=== PATIENT | female | born 1945 | race Two or more races ===

== ENCOUNTER 2021-06-16 09:29 | Outpatient (REF) | payer MEDICARE, MEDICAID, SELFPAY ==
--- NOTE | ~2021-06-16 | CT_ITS ---
EXAMINATION: CT HEAD WITHOUT CONTRAST CLINICAL INFORMATION: Migraines. COMPARISON: None TECHNIQUE: Contiguous axial imaging was performed from the skull base to vertex without intravenous administration of contrast. This CT examination was performed using dose optimization techniques as appropriate, variously including the following: *Automated exposure control *Adjustment of mA and/or kV according to patient size (this includes techniques or standardized protocols for targeted exams where dose is matched to indication/reason for exam; i.e. extremities or head) *Use of iterative reconstruction technique DLP: 570 mGy-cm FINDINGS: There is no evidence of acute intracranial hemorrhage or territorial infarction. No abnormal mass effect or midline shift is seen. Carrasco to white matter differentiation is well preserved. No extra-axial fluid collections are identified. The ventricles are normal in size. There is no abnormal attenuation within the brain parenchyma. The osseous structures and soft tissues are normal. The mastoid air cells and visualized portions of the paranasal sinuses are well aerated. CT/CT head/brain wo con IMPRESSION: No acute intracranial process seen.
== END 2021-06-16 09:30 | disposition home or self-care (01) ==
LOC: HO.CT 09:29
PROVIDERS: Visit Provider Physician Assistant Medical
DX: G43.109 Migraine with aura, not intractable, without status migrainosus (principal)
CPT/HCPCS: 70450

== ENCOUNTER 2025-05-26 11:00 | Outpatient (AMB) | payer MEDICARE, MEDICAID, SELFPAY ==
--- NOTE | 2025-05-26 11:07 | A.OFFVIS_ITS ---
Vital Signs 05/26/25 11:13 Height 5 ft Weight 115 lb BMI 22.5 BP 124/70 Blood Pressure Location Lt brachial Position Sitting Respiration 16 Pulse 76 Pulse Source Pulse Oximeter Pulse Oximetry (%) 99 Oxygen Delivery Method Room Air Intake Visit Reasons: Migraine Chute Builder Required: No Accompanied by: Daughter Allergies No Known Allergies Allergy (Verified 05/26/25 11:14) HPI Comments Details: Leanna is a 79-year-old female patient with a past medical history of hypertension and hyperlipidemia here today for headache evaluation. According to referral notes, she went to the emergency room on 03/26/2025 for headache which was persistent for at least 5 days with feelings of dizziness and chest pain. Her workup was relatively unrevealing and included a chest x-ray, EKG, CT head and brain, CTA, and MRI of the brain as well as an echocardiogram. She tells me today that she has not headaches since approximately 1996. Most of her headaches have been right-sided though sometimes holocephalic sometimes accompanied by light sensitivity and rarely some nausea. Her headaches are primarily to the frontal areas and parietal areas and she often has tenderness to the occipital areas of her head shows well as her neck and trapezius muscles. She also notes that her pain often radiates down into her neck muscles. She has difficulty with range of motion due to feelings of tightness. Her headaches have been daily and constant for many years but fluctuate in intensity. Since her hospitalization, she has had no further chest pain or dizziness. Her headache has also improved some. She was not able to identify a trigger for her recent hospitalization and in general, is not sure if she has any triggers for her headaches. She denies any autonomic symptoms such as tearing, redness, drooping of her eye, congestion, or rhinorrhea. She denies any vision changes with her headaches but notes that sometimes her eyes are very itchy upon wakening in the morning that is not associated with her headaches. Headache characteristics: Time of onset: 1996 Location: R>L frontoparietal Radiation:To neck R>L Positional component:No Character: Pulsating Severity:Fluctuating but can reach 10/10 Duration: Constant Frequency: Daily Acute aggravating factors:Unknown Acute relieving factors:Unknown Associated symptoms:Light sensitivity and rarely nausea Aura:No Headache triggers:Unknown Other related background information: Sleep: She does have intermittent insomnia. 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- likely not cause for symptoms but follow- up with vascular recommended MRI brain-no acute/subacute infarct or mass [facility] Medical History (Updated 05/26/25 @ 12:26 by Philomena Alarcon CNP) Osteoporosis GERD (gastroesophageal reflux disease) Varicose ulcer of lower extremity Seasonal allergic rhinitis Pure hypercholesterolemia Essential hypertension Migraine Surgical History (Updated 05/21/25 @ 08:45 by Monica Benítez [facility]) History of cholecystectomy H/O breast surgery Physical Exam Vital Signs: Last Vital Signs Pulse 76 05/26/25 11:13 Resp 16 05/26/25 11:13 BP 124/70 05/26/25 11:13 Pulse Ox 99 05/26/25 11:13 Oxygen Delivery Method Room Air 05/26/25 11:13 BMI result Body Mass Index 22.5 Assessment & Plan Assessment & Plan (1) Chronic tension type headache: Code(s): G44.229 - Chronic tension-type headache, not intractable Category: Medical (2) Migraine without aura and without status migrainosus, not intractable: Code(s): G43.009 - Migraine without aura, not intractable, without status migrainosus Category: Medical Plan Leanna is a 79-year-old female patient with a past medical history of hypertension and hyperlipidemia here today for headache evaluation. Headaches are most consistent with tension-type headache most likely relapsing migraine type headaches. Her exam today was reassuring though she did have some bilateral (R>L) occipital notch tenderness and diffuse tenderness over her trapezius muscles on both sides. She has failed several different migraine first-line agents. She has never done physical therapy or muscle relaxers for her headaches. We discussed a trial of low-dose tizanidine nightly in conjunction with heat application and physical therapy. I will see her 2 months. -tizanidine 2 mg at bedtime -heat application to the trapezius muscles -trial of physical therapy for myofascial release -follow up in 2 months or sooner if needed Coding Level of Care Code New Pt Level 4 (22617) Diagnoses Chronic tension type headache G44.229 Migraine without aura and without status migrainosus, not intractable G43.009
[2025-05-26 11:13] VITALS: BP 124/70; PULSE 76; RESP 16; O2SAT 99; BMI 22.5
--- OUTSIDE RECORDS SUMMARY | 2025-05-26 13:48 | XMS_ITS | Encounter Summary ---
Author Organization [facility] Address [address] [place] [address] [place] [phone] Phone Care Team Providers Care Vocational Director Name Role Phone Amber Mota Primary Care Provider Pedro Le NP Primary Care Provide r Encounter Details Date Type Department Care Team (Late st Contact Info) Description 12/03/2020 Transcribe Orders [address] [place] [address] Pedro Le, SLIME PLANT OPERATOR HELPER [address] [place] [address] Other chest pain (Primary Dx) Social History Tobacco Use Types Packs/Day Years Used Date Smoking Tobacco: Never Assessed Comments Unknown Sex and Gender Information Value Date Recorded Sex Assigned at Female 09/18/2019 2:12 PM EST Legal Sex Female 10:08 PM EDT Gender Identity Female 09/18/2019 2:12 PM EST Sexual Orientation Straight 09/18/2019 2: 12 PM EST documented as of this encounter Plan of Treatment Upcoming Encounters Date Type Department Care Team (Late st Contact Info) Description 12/19/2025 11:00 AM EDT Office Visit [facility] [address] [address] James Dejesus, SAMMIE [address] [place] [address] documented as of this encounter Results * (ABNORMAL) Comprehensive metabolic panel (12/03/2020 11:09 AM EDT) SODIUM 140 133 - 146 mmol/L [facility] POTASSIUM 3.9 3.3 - 5.1 mmol/L [facility] CHLORIDE 104 96 - 108 mmol/L [facility] CO2 24 21 - 35 mmol/L [facility] BUN 12 6 - 19 mg/dL [facility] CREATININE 0.60 0.5 - 1.5 mg/dL [facility] GLUCOSE 100(H) 70 - 99 mg/dL [facility] ALBUMIN 4.5 3.9 - 4.8 g/dL [facility] TOTAL PROTEIN 7.4 6.5 - 8.0 g/dL [facility] CALCIUM 9.4 8.4 - 10.3 mg/dL [facility] ALKALINE PHOSPHATASE 90 39 - 117 U/L [facility] TOTAL BILIRUBIN 0.8 0.0 - 1.2 mg/dL [facility] AST 38(H) 0 - 37 U/L [facility] ALT 20 0 - 40 U/L [facility] GLOBULIN 2.9 1 - 4.8 g/dL [facility] EGFR 89 >59 mL/min/1.7 3m2 [facility] Comment:Estimated glomerular filtration rate calculated using the CKD-EPI equation. ANION GAP 16 10 - 20 mmol/L [facility] Blood 12/03/2020 11:0 9 AM EDT 12/03/2020 11:13 AM EDT us Pedro Le SLIME PLANT OPERATOR HELPER LAB BLOOD BKR ORDERAB LES Final Result [facility] [address] [place] [address] * CBC (12/03/2020 11:09 AM EDT) WBC 5.56 4.00 - 11.00 K/uL [facility] RBC 4.00 3.72 - 5.30 M/uL [facility] HGB 12.2 11.4 - 15.9 g/dL [facility] HCT 36.3 34.2 - 46.8 % [facility] PLT 261 140 - 430 K/uL [facility] MCV 90.8 78.0 - 97.0 fL [facility] MCH 30.5 25.0 - 33.0 pg [facility] MCHC 33.6 32.0 - 36.0 g/dL [facility] RDW 13.1 11.0 - 16.0 % [facility] MPV 10.7 8.4 - 12.8 fl [facility] NRBC 0.00 0 /100 WBCs [facility] ABSOLUTE NRBC 0.00 0 K/uL [facility] Blood 12/03/2020 11:0 9 AM EDT 12/03/2020 11:13 AM EDT us Pedro Le SLIME PLANT OPERATOR HELPER LAB BLOOD BKR ORDERAB LES Final Result Performing Organization Address City/State/[facility] Co de Phone Number [address] [address] * (ABNORMAL) Lipid panel (12/03/2020 11:09 AM EDT) HDL 66 mg/dL [facility] Comment: Interpretation <40 mg/dL: Low HDL cholesterol (major risk factor for CHD) Greater than or equal to 60 mg/dL: High HDL cholesterol ( negative risk factor for CHD) HDL - cholesterol is affected by a number of factors, e.g. smoking, excerise, hormones, sex and age. CHOLESTEROL 264(H) 0 - 240 mg/dL [facility] TRIGLYCERIDES 105 30 - 160 mg/dL [facility] LDL 177(H) 50 - 129 mg/dL [facility] Comment: LDL levels in terms of risk for coronary heart disease: <100 mg/dL: Optimal 100-129 mg/dL: Near or above optimal 130-159 mg/dL: Borderline high 160-189 mg/dL: High >190 mg/dL: Very High CARDIAC RISK RATIO 4.0 3.3 - 4.4 C [facility] Blood 12/03/2020 11:0 9 AM EDT 12/03/2020 11:13 AM EDT Pedro Le SLIME PLANT OPERATOR HELPER LAB BLOOD BKR ORDERAB LES Final Result [address] [address] documented in this encounter Visit Diagnoses Diagnosis Other chest pain- Primary documented in this encounter Care Teams Vocational Director Relationship Specialty Start Date End Date Amber Mota PA [address] [address] PCP - General Unknown Provider Specialty 06/25/1809/22/22 Pedro Le NP [address] [address] PCP - General Nurse Practitioner 09/23/22 documented as of this encounter Additional Source Comments The information contained in this document represents components of the legal health record. It is not the complete legal health record.[facility]
--- OUTSIDE RECORDS SUMMARY | 2025-05-26 13:48 | XMS_ITS | Encounter Summary ---
Author Organization [facility] Address [address] [facility] [address] [address] [place] [address] Phone Care Team Providers Care Executive Candidate Developer Name Role Phone Amber Mota Primary Care Provider [phone] Pedro Le NP Primary Care Provide r Encounter Details Date Type Department Care Team (Late st Contact Info) Description 11/04/2021 Ancillary Orders Virtual Department [address] [place] [address] Pedro Le, ANATOLIY [address] [place] [address] Osteopenia, unspecified location; Other specified disorders of bone density and structure, unspecified site Social History Tobacco Use Types Packs/Day Years [...] 12/19/2025 11:00 AM EDT Office Visit [facility] [address] [address] James Dejesus, WATER LEAK REPAIRER [address] [place] [address] [email or web address] documented as of this encounter Results * BD DXA AXIAL (SPINE) WITH HIP (04/07/2022 9:41 AM EDT) Anatomical Region Laterality Modality Bone Density Bone Density 04/07/2022 9:46 AM EDT Impressions 04/07/2022 9:47 AM EDT Osteoporosis Reference Information: The T-score is the number of standard deviations above or below the standard which is normal for young adults at their peak bone mineral density. The World Health Organization (WHO) interprets the T-scores as follows: Above -1 Normal bone density Between -1 and -2.5Osteopenia Equal to / or below -2.5Osteoporosis As a practical clinical guideline, osteopenia may be graded as follows: Mild -1 through -1.5 Moderate -1.6 through -2.0 Severe-2.1 through -2.4 References: 1. NIH Osteoporosis and Related Bone Diseases http://www.osteo.org 2. International Society for Clinical Densitometry http://www.iscd.org 3. National Osteoporosis Foundation http://www.nof.org Narrative 04/07/2022 9:47 AM EDT STUDY: DUAL ENERGY X-RAY ABSORPTIOMETRY / DXA REASON FOR EXAM: Female, 76 years old. TECHNIQUE: Bone Mineral Density (BMD) measurements of the lumbar spine and bilateral hips were obtained. COMPARISON: None. FINDINGS: L1-L4 T score: -2.4. This corresponds to osteopenia Right femoral neck T score: -1.9. This corresponds to osteopenia Right total hip T score: -1.7. This corresponds to osteopenia Left femoral neck T score: -2.6. This corresponds to osteoporosis Left total hip T score: -1.9. This corresponds to osteopenia Procedure Note Lai Jarquin MD - 04/07/2022 STUDY: DUAL ENERGY X-RAY ABSORPTIOMETRY / DXA REASON FOR EXAM: Female, 76 years old. TECHNIQUE: Bone Mineral Density (BMD) measurements of the lumbar spineand bilateral hips were obtained. COMPARISON: None. FINDINGS: L1-L4 T score: -2.4. This corresponds to osteopenia Right femoral neck T score: -1.9. This corresponds to osteopenia Right total hip T score: -1.7. This corresponds to osteopenia Left femoral neck T score: -2.6. This corresponds to osteoporosis Left total hip T score: -1.9. This corresponds to osteopenia IMPRESSION: Osteoporosis Reference Information: The T-score is the number of standard deviations above or below thestandard which is normal for young adults at their peak bone mineraldensity. The World Health Organization (WHO) interprets the T-scores asfollows: Above -1 Normal bone density Between -1 and -2.5Osteopenia Equal to / or below -2.5Osteoporosis As a practical clinical guideline, osteopenia may be graded as follows: Mild -1 through -1.5 Moderate -1.6 through -2.0 Severe-2.1 through -2.4 References: 1. NIH Osteoporosis and Related Bone Diseases http://www.osteo.org 2. International Society for Clinical Densitometry http://www.iscd.org 3. National Osteoporosis Foundation http://www.nof.org us Pedro Le HEAT TREAT OPERATOR IMG BD BONE DENSITY D EXA Final Result documented in this encounter Visit Diagnoses Diagnosis Osteopenia, unspecified location Other specified disorders of bone density and structure, unspecified site Osteopenia, unspecified location Other specified disorders of bone density and structure, unspecified site documented in this encounter Care Teams Executive Candidate Developer Relationship Specialty Start Date End Date Amber Mota PA [address] [address] PCP - General Unknown Provider Specialty 06/25/1809/22/22 Pedro Le NP [address] [address] PCP - General Nurse Practitioner 09/23/22 documented as of this encounter Additional Source Comments The information contained in this document represents components of the legal health record. It is not the complete legal health record.[facility]
--- OUTSIDE RECORDS SUMMARY | 2025-05-26 13:48 | XMS_ITS | Encounter Summary ---
Author Organization [employer] Address [address] [facility] [address] [place] [address] Care Team Providers Care Coach Driver Name Role Phone Pedro Le BUSINESS OFFICE COORDINATOR Primary Care Provider [phone] Reason for Visit * Reason Comments Med Refill Encounter Details Date Type Department Care Team (Late st Contact Info) Description 05/09/2025 Refill [facility] [address] [place] [address] Pedro Le NP 70 [place] [address] Essential hypertension Social History Tobacco Use Types Packs/Day Years Used Date Smoking Tobacco: Never Smokeless Tobacco: Never Alcohol Use Standard Drinks/Week Comments Never 0 (1 standard drink = 0.6 oz pur e alcohol) Housing Stability Answer Date Recorded What is your housing situation today? I have susanna gonzalez 04/15/[address] you li ve. Do you have problems with any of the following? None of the above 04/15/2024 Food Insecurity Answer Date Recorded Within the past 12 months, y ou worried that your food would run out before you got money to buy more: Never True 04/15/2024 Within the past 12 months,th e food you bought just didn't last and you didn't have enough money to get more: Never True Transportation Answer Date Recorded In the past 12 months, has l ack of transportation kept you from medical appts, meetings, work or from getting things needed for daily living? No 04/15/2024 Utilities Answer Date Recorded In the past 12 months, has t he electric, gas, oil or water company threatened to shut off services in your home? No 04/15/2024 Depression Answer Date Recorded Patient Health Questionnaire-2 Score 0 04/15/2024 Internet Access Answer Date Recorded Internet Access Q1 Yes 04/15/2024 Internet Access Q2 Not on file 04/15/2024 Comments Unknown Sex and Gender Information Value Date Recorded Sex Assigned at Female 05/24/2022 5:37 PM EDT Legal Sex Female 8:39 PM EDT Gender Identity Female 09/21/2022 1:58 PM EST Sexual Orientation Choose not to disclose 2021 5:37 PM EDT documented as of this encounter Miscellaneous Notes * Telephone Encounter - Yeimy Verma [place] - 05/09/2025 9:13 AM EDT Per last TE, AG stated med was changed due to pharmacy. documented in this encounter Plan of Treatment Upcoming Encounters Date Type Department Care Team (Late st Contact Info) Description 06/05/2025 12:30 PM EST Office Visit [facility] [address] [facility] [place] [address] Pedro Le NP 70 [place] [address] documented as of this encounter Visit Diagnoses Diagnosis Essential hypertension Unspecified essential hypertension documented in this encounter Care Teams Coach Driver Relationship Specialty Start Date End Date Pedro Le NP 70 [facility] [place] [address] PCP - General Internal Medicine 09/21/22 documented as of this encounter
--- OUTSIDE RECORDS SUMMARY | 2025-05-26 13:48 | XMS_ITS | Encounter Summary ---
Author Organization [facility] Address [address] [place] [address] [place] [address] Phone Care Team Providers Care Hat Brim And Crown Laminating Operator Name Role Phone Amber Mota Primary Care Provider [phone] Pedro Le NP Primary Care Provide r Encounter Details Date Type Department Care Team (Late st Contact Info) Description 11/04/2021 Transcribe Orders Virtual Department [address] [place] [address] Pedro Le, ANATOLIY [address] [place] [address] Osteopenia, unspecified location Social History Tobacco Use Types Packs/Day Years [...] 12/19/2025 11:00 AM EDT Office Visit [facility] [address] [address] James Dejesus, SAMMIE [address] [place] [address] documented as of this encounter Visit Diagnoses Diagnosis Osteopenia, unspecified location documented in this encounter Care Teams Hat Brim And Crown Laminating Operator Relationship Specialty Start Date End Date Amber Mota PA [address] [address] PCP - General Unknown Provider Specialty 06/25/1809/22/22 Pedro Le NP [address] [address] PCP - General Nurse Practitioner 09/23/22 documented as of this encounter Additional Source Comments The information contained in this document represents components of the legal health record. It is not the complete legal health record.[facility]
--- OUTSIDE RECORDS SUMMARY | 2025-05-26 13:48 | XMS_ITS | Encounter Summary ---
Author Organization [facility] Address [address] [facility] [address] [place] [address] Phone Care Team Providers Care Assisted Living Care Manager Name Role Phone Svetlana Amber CHAPA Primary Care Provider Pedro Le NP Primary Care Provide r Encounter Details Date Type Department Care Team (Late st Contact Info) Description 06/16/2021 Ancillary Orders [facility],Outside Imaging [address] [place] [address] System, Provider Not In, [place] [address] Social History Tobacco Use Types Packs/Day Years [...] Description 12/19/2025 11:00 AM EDT Office Visit [address] [address] James Dejesus, SAMMIE [address] [place] [address] [email or web address] documented as of this encounter Results * CT Head Outside (No Interpretation) (06/16/2021 5:38 PM EST) Narrative SYSTEMGENERATED, DOCUMENTATION - 06/16/2021 5:38 PM EST This study is for PACS storage only and not for interpretation. us Provider Not In System PhD IMG OUTSIDE IMAGING W /OUT INTERPRETATION Final Result documented in this encounter Visit Diagnoses Not on filedocumented in this encounter Care Teams Assisted Living Care Manager Relationship Specialty Start Date End Date Amber Mota PA [address] [address] PCP - General Unknown Provider Specialty 06/25/1809/22/22 Pedro Le NP [address] [address] PCP - General Nurse Practitioner 09/23/22 documented as of this encounter Additional Source Comments The information contained in this document represents components of the legal health record. It is not the complete legal health record.[facility]
--- OUTSIDE RECORDS SUMMARY | 2025-05-26 13:48 | XMS_ITS | Encounter Summary ---
Author Organization [employer] [facility] Address [address] [facility] [address] [place] [address] Care Team Providers Care Sole Cementer Name Role Phone Pedro Le NP Primary Care Provider Reason for Visit * Reason Comments Med Change Request Encounter Details Date Type Department Care Team (Late st Contact Info) Description 10/08/2022 Refill [facility] MED[facility] [address] [place] [address] Pedro Le NP [address] [place] [address] Gastroesophageal reflux disease without esophagitis Social History Tobacco Use Types Packs/Day Years Used Date Smoking Tobacco: Never Smokeless Tobacco: Never Alcohol Use Standard Drinks/Week Comments Never 0 (1 standard drink = 0.6 oz pur e alcohol) Comments Unknown Sex and Gender Information Value Date Recorded Sex Assigned at Female 05/24/2022 5:37 PM EDT Legal Sex Female 8:39 PM EDT Gender Identity Female 09/21/2022 1:58 PM EST Sexual Orientation Choose not to disclose 2021 5:37 PM EDT COVID-19 Exposure Response Date Recorded In the last 10 days, have yo u been in contact with someone who was confirmed or suspected to have Coronavirus/COVID-19? No / Unsure 10/06/2022 7:53 AM EDT documented as of this encounter Miscellaneous Notes * Telephone Encounter - Pedro Le NP - 10/10/2022 10:07 AM EDT Already sent documented in this encounter Plan of Treatment Upcoming Encounters Date Type Department Care Team (Late st Contact Info) Description 06/05/2025 12:30 PM EST Office Visit [facility] MED[facility] [address] [place] [address] Pedro Le NP [address] [place] [address] documented as of this encounter Visit Diagnoses Diagnosis Gastroesophageal reflux disease without esophagitis Esophageal reflux documented in this encounter Care Teams Sole Cementer Relationship Specialty Start Date End Date Pedro Le NP 70 [place] [address] PCP - General Internal Medicine 09/21/22 documented as of this encounter
--- OUTSIDE RECORDS SUMMARY | 2025-05-26 13:48 | XMS_ITS | Encounter Summary ---
Author Organization [facility] Address [address] [place] [address] [place] [address] Phone Care Team Providers Care Transit Man Name Role Phone Amber Mota Primary Care Provider [phone] Pedro Le NP Primary Care Provide r Reason for Referral * MRI/CAT Scan - Closed Specialty Diagnoses / Procedures Referred By Elma t Referred To Contact Radiology Diagnoses Migraine with aura and without status migrainosus, not intractable Procedures CT Head Maria C Verdugo PA Phone: tel: Referral ID Status Reason Start Date Expiration Date Visits Re quested Visits Authorized [id number] Closed 05/18/2021 05/18/2022 1 1 Encounter Details Date Type Department Care Team (Late st Contact Info) Description 05/18/2021 Transcribe Orders Virtual Department [address] [place] [address] Maria C Verdugo PA 9 [place] [address] Migraine with aura and without status migrainosus, not intractable (Primary Dx) Social History Tobacco Use Types [...] 12/19/2025 11:00 AM EDT Office Visit [facility] [address] [place] [address] James Dejesus, SAMMIE [address] [place] [address] [email or web address] documented as of this encounter Results * CT Head (06/22/2021 8:31 AM EST) Anatomical Region Laterality Modality Head CT Diagnostic Narrative 06/22/2021 8:[address] [facility] us Maria C CHAPA IMThong CT HEAD/NECK Final Result documented in this encounter Visit Diagnoses Diagnosis Migraine with aura and without status migrainosus, not intractable- Primary Migraine with aura and without status migrainosus, not intractable documented in this encounter Care Teams Transit Man Relationship Specialty Start Date End Date Amber Mota PA [address] [address] PCP - General Unknown Provider Specialty 06/25/1809/22/22 Pedro Le NP [address] [address] PCP - General Nurse Practitioner 09/23/22 documented as of this encounter Additional Source Comments The information contained in this document represents components of the legal health record. It is not the complete legal health record.[facility]
--- OUTSIDE RECORDS SUMMARY | 2025-05-26 13:48 | XMS_ITS | Encounter Summary ---
Author Organization [facility] Address [address] [place] [address] [place] [address] Phone Care Team Providers Care Biblical Languages Professor Name Role Phone Amber Mota Primary Care Provider [phone] Pedro Le NP Primary Care Provide r Encounter Details Date Type Department Care Team (Late st Contact Info) Description 06/30/2021 Transcribe Orders [address] [place] [address] Maria C Verdugo PA 9 [place] [address] Mild cognitive impairment, so stated (Primary Dx); Vitamin D deficiency, unspecified; Disease of thyroid gland; Anemia due to vitamin B12 deficiency, unspecified B12 deficiency type Social History Tobacco Use Types Packs/Day Years [...] 12/19/2025 11:00 AM EDT Office Visit [facility] [address] [place] [address] James Dejesus, PACKAGE DYEING MACHINE OPERATOR [address] [place] [address] [email or web address] documented as of this encounter Results * Vitamin B12 (06/30/2021 10:18 AM EST) VITAMIN B12 913 232 - 1,245 pg/mL [facility] Blood 06/30/2021 10:1 8 AM EST 06/30/2021 10:24 AM EST us Maria C CHAPA LAB BLOOD BKR ORDERABLES Final Result Performing Organization Address City/[facility]/ZIP Co de Phone Number [address] [address] * Free T4 (06/30/2021 10:18 AM EST) FREE T4 1.2 0.9 - 1.7 ng/dL [facility] Blood 06/30/2021 10:1 8 AM EST 06/30/2021 10:24 AM EST us Maria C CHAPA LAB BLOOD BKR ORDERABLES Final Result Performing Organization Address City/[facility]/ZIP Co de Phone Number [address] [address] * (ABNORMAL) 25-OH vitamin D (06/30/2021 10:18 AM EST) 25 OH VIT D (TOTAL) 27(L) 30 - 60 ng/mL [facility] Blood 06/30/2021 10:1 8 AM EST 06/30/2021 10:24 AM EST us Maria C CHAPA LAB BLOOD BKR ORDERABLES Final Result Performing Organization Address City/[facility]/ZIP Co de Phone Number [address] [address] documented in this encounter Visit Diagnoses Diagnosis Mild cognitive impairment, so stated- Primary Vitamin D deficiency, unspecified Disease of thyroid gland Unspecified disorder of thyroid Anemia due to vitamin B12 deficiency, unspecified B12 deficiency type documented in this encounter Care Teams Biblical Languages Professor Relationship Specialty Start Date End Date Amber Mota PA [address] [address] PCP - General Unknown Provider Specialty 06/25/1809/22/22 Pedro Le NP [address] [address] PCP - General Nurse Practitioner 09/23/22 documented as of this encounter Additional Source Comments The information contained in this document represents components of the legal health record. It is not the complete legal health record.[facility]
--- OUTSIDE RECORDS SUMMARY | 2025-05-26 13:48 | XMS_ITS | Encounter Summary ---
Author Organization [facility] Address [address] [facility] 7t [place] [address] Care Team Providers Care Inspector Optical Instrument Name Role Phone Pedro Le NP Primary Care Provider Encounter Details Date Type Department Care Team (Late st Contact Info) Description 10/06/2022 Abstract [facility] [address] [place] [address] Pedro Le NP 70 [place] [address] Social History Tobacco Use Types Packs/Day Years [...] AM EDT documented as of this encounter Plan of Treatment Upcoming Encounters Date Type Department Care Team (Late st Contact Info) Description 06/05/2025 12:30 PM EST Office Visit [facility] [address] [place] [address] Pedro Le NP 70 [place] [address] documented as of this encounter Visit Diagnoses Not on filedocumented in this encounter Care Teams Inspector Optical Instrument Relationship Specialty Start Date End Date Pedro Le NP [address] [employer] [facility] [place] [address] PCP - General Internal Medicine 09/21/22 documented as of this encounter
--- OUTSIDE RECORDS SUMMARY | 2025-05-26 13:48 | XMS_ITS | Encounter Summary ---
Author Organization [facility] Address [address] [place] [address] [place] [address] Phone Care Team Providers Care General Maintenance Technician Name Role Phone Svetlana Amber CHAPA Primary Care Provider [phone] Pedro Le NP Primary Care Provide r Encounter Details Date Type Department Care Team (Late st Contact Info) Description 09/21/2022 Ancillary Orders [facility], X-Ray - [address] [place] [address] Gretchen Jerez, CLAIMS SORTER [address] [place] [address] Finger pain, left Social History Tobacco Use Types Packs/Day Years [...] Description 12/19/2025 11:00 AM EDT Office Visit [address] [address] James Dejesus, SAMMIE 29 [place] [address] documented as of this encounter Results * XR HAND 3 OR MORE VIEWS (LEFT) (09/23/2022 10:56 AM EST) Anatomical Region Laterality Modality Hand Left Computed Radiogr aphy 09/24/2022 12:0 0 PM EST Impressions 09/24/2022 12:02 PM EST Fourth finger soft tissue swelling without acute osseous abnormality. Narrative 09/24/2022 12:02 PM EST XR HAND 3 OR MORE VIEWS (LEFT) COMPARISON: None FINDINGS: Mild soft tissue swelling of the fourth finger. Bones demineralized. No acute displaced fracture. Mild to moderate joint space narrowing affects the interphalangeal joints, DIP greater than PIP. MCP and wrist joint spaces preserved. No osseous erosions. Procedure Note Talita Marshall MD - 09/24/2022 XR HAND 3 OR MORE VIEWS (LEFT) COMPARISON: None FINDINGS: Mild soft tissue swelling of the fourth finger. Bones demineralized. Noacute displaced fracture. Mild to moderate joint space narrowing affectsthe interphalangeal joints, DIP greater than PIP. MCP and wrist jointspaces preserved. No osseous erosions. IMPRESSION: Fourth finger soft tissue swelling without acute osseous abnormality. [facility] CLAIMS SORTER IMG XR UPPER EXTREMITY Final Result documented in this encounter Visit Diagnoses Diagnosis Finger pain, left Pain in soft tissues of limb Finger pain, left Pain in soft tissues of limb documented in this encounter Care Teams General Maintenance Technician Relationship Specialty Start Date End Date Amber Mota PA [address] [address] PCP - General Unknown Provider Specialty 06/25/1809/22/22 Pedro Le NP [address] [address] PCP - General Nurse Practitioner 09/23/22 documented as of this encounter Additional Source Comments The information contained in this document represents components of the legal health record. It is not the complete legal health record.[facility]
--- OUTSIDE RECORDS SUMMARY | 2025-05-26 13:48 | XMS_ITS | Clinical Summary ---
Author Organization [facility] Address [address] [facility] [address] [place] [address] Phone Care Team Providers Care Registered Dental Assistant Rda Name Role Phone Pedro Le NP Primary Care Provide r Allergies No known active allergies Medications valsartan (DIOVAN) 80 MG tablet TAKE 1 TABLET BY MOUTH EVERY DAY FOR 90 DAYS for 90 Active lisinopril (PRINIVIL,ZEST RIL) 10 MG tablet 1 tablet Active fremanezumab-v frm (AJOVY AUTOINJECTOR) 225 mg/1.5 mL AtIn INJECT 1 SYRINGE SUBCUTANEOUSLY ONCE A MONTH 2 Active famotidine (PEPCID) 20 MG tablet As needed for acid reflux 3 Active ergocalciferol (DRISDOL) 50,000 unit capsule Take 1.25 mg by mouth. 3 Active atorvastatin (LIPITOR) 40 MG tablet Take 40 mg by mouth. 3 Active amLODIPine (NORVASC) 2.5 MG tablet Take 1 tablet by mouth every morning. 3 Active alendronate (FOSAMAX) 70 MG tablet Take 70 mg by mouth. 3 Active melatonin 5 mg Cap Take by mouth. Activ e acetaminophen (TYLENOL) 500 MG tablet Take 1,000 mg by mouth 2 (two) times a day as needed. 4 Active naproxen (NAPROSYN) 500 MG tablet Take 500 mg by mouth 2 (two) times a day as needed. 4 Active propranoloL (INDERAL LA) 80 mg 24 hr capsule Take 80 mg by mouth. 4 Active omeprazole (PRILOSEC) 20 MG tablet Take 20 mg by mouth daily. Active Active Problems Problem Noted Date Diagnosed Date Varicose veins of bilateral lower extremities with other complications 02/20/2023 Assessment & Plan (11/27/2023 9:40 AM EDT): She does not have deep vein valve regurgitation or GSV regurgitation these are just surface veins I reassured her regarding this. Assessment & Plan (05/29/2023 9:01 AM EST): As mentioned very minimal reflux if at all so no interventions need to be performed just conservative management I will reevaluate in 6 months time Assessment & Plan (02/20/2023 10:40 AM EDT): As mentioned she is having a lot of symptoms from bulging veins I will check with a venous reflux study I will see her thereafter in follow-up to tailor more specific therapy. Benign essential hypertension 02/20/2023 Assessment & Plan (11/27/2023 9:39 AM EDT): Well-controlled to the guidelines. Assessment & Plan (05/29/2023 9:01 AM EST): Minimally elevated but recheck was normal Assessment & Plan (02/20/2023 10:40 AM EDT): She is on amlodipine and losartan with good control Pure hypercholesterolemia 02/20/2023 Assessment & Plan (11/27/2023 9:39 AM EDT): Well-controlled at this time given her risk Assessment & Plan (05/29/2023 9:01 AM EST): LDL should be less than 100 given her risk Assessment & Plan (02/20/2023 10:40 AM EDT): She is on a statin agent LDL should be less than 100 triglycerides less than 150 Encounters Date Type Department Care Team Description 05/16/2025 Telephone [facility] [address] [place] [address] Pedro Le NP 03/31/2025 11:24 AM EDT - 03/31/2025 11:59 PM EDT Hospital Encounter [facility] [address] [place] [address] Jocelyn Mccall MD Discharge Disposition: Home or Self Care 03/31/2025 Transcribe Orders [facility] [address] [place] [address] Jocelyn Mccall MD Hypopotassemia (Primary Dx) from Last 3 Months Social History Tobacco Use Types Packs/Day Years Used Date Smoking Tobacco: Never Smokeless Tobacco: Current Tobacco Cessation:Ready to Q uit: Not Asked; Counseling Given: Not Answered Education Answer Date Recorded Are you interested in more education? Not on carla e 11/18/2022 Are you concerned about learning? Not on file 11/18/2022 No 11/18/2022 No 11/18/2022 Digital Access Answer Date Recorded No 12/19/2022 No 12/19/2022 Reliable internet access at home? Not on file 12/19/2022 Device with a working camera? Not on file Comments Unknown Sex and Gender Information Value Date Recorded Sex Assigned at Female 09/18/2019 2:12 PM EST Legal Sex Female 10:08 PM EDT Gender Identity Female 09/18/2019 2:12 PM EST Sexual Orientation Straight 09/18/2019 2: 12 PM EST Last Filed Vital Signs Vital Sign Reading Time Taken Comments Blood Pressure 138/60 11/27/2023 9:24 AM EDT Pulse 67 11/27/2023 9:24 AM EDT Temperature 36.1 C (97 F) 09/18/2019 2:10 PM EST Respiratory Rate 16 09/18/2019 5:24 PM EST Oxygen Saturation 99% 11/27/2023 9:24 AM EDT Inhaled Oxygen Concentration - - Weight 52.6 kg (116 lb) 11/27/2023 9:24 AM EDT Height 165.1 cm (5' 5 ) 11/27/2023 9:24 AM EDT Body Mass Index 19.3 11/27/2023 9:24 AM EDT Plan of Treatment Upcoming Encounters Date Type Department Care Team (Late st Contact Info) Description 12/19/2025 11:00 AM EDT Office Visit [facility] [address] [place] [address] James Dejesus, COMPLETION ENGINEER 29 [place] [address] [email or web address] Health Maintenance Due Date Last Done Comments DEPRESSION SCREENING 1957 HEPATITIS C SCREENING 10/22/1963 ZOSTER VACCINES (1 of 2) 10/22/1995 PNEUMOCOCCAL VACCINES (50+ years) (2 of 2 - PCV) 12/03/2013 12/03/2012 RSV VACCINE (1 - 1-dose 75+ series) 2020 BLOOD PRESSURE 05/29/2024 11/27/2023 INFLUENZA VACCINE (#1) 2025 , 06/05/2019, 08/27/2012 COVID-19 VACCINE (3 - season) 2025 09/18/2020, 08/28/2020 CREATININE LEVEL 03/31/2026 03/31/2025, , 10/14/2022, Additional history exists POTASSIUM LEVEL 03/31/2026 03/31/2025, 12/23, 10/14/2022, Additional history exists LIPID PANEL 01/10/2029 01/11/2024, 09/22, 11/03/2021, Additional history exists Adult Td,Tdap Booster 05/05/2031 05/05/2021, 012 OSTEOPOROSIS SCREENING INITIAL (ONE-TIME) Completed 04/07/2022 SMOKING STATUS SCREENING (Once After 26 Yrs) Completed 11/27/2023 HEPATITIS A VACCINES Aged Out No long er eligible based on patient's age to complete this topic HIB VACCINES Aged Out No longer eligi ble based on patient's age to complete this topic MENINGOCOCCAL VACCINES (ACWY) Aged Out No longer eligible based on patient's age to complete this topic MENINGOCOCCAL VACCINES (B) Aged Out N o longer eligible based on patient's age to complete this topic Medical Devices Not on file Procedures Procedure Name Priority Date/Time Associated Diagnosis Comments BASIC METABOLIC PANEL (BMP) Routine 03/31/2025 11:33 AM EDT Hypopotassemia LIPID PANEL Routine 01/11/2024 10:19 AM EDT Pure hypercholesterolemia Lymphadenopathy Avitaminosis D Senile osteoporosis BD DXA AXIAL (SPINE) WITH HIP Routine 04/07/2022 9:41 AM EDT Osteopenia, unspecified location Other specified disorders of bone density and structure, unspecified site from Last 3 Months or Most Recently Relevant to Health Maintenance Results * Basic metabolic panel (03/31/2025 11:33 AM EDT) SODIUM 138 133 - 146 mmol/L [facility] CHLORIDE 103 96 - 108 mmol/L [facility] POTASSIUM 4.5 3.3 - 5.1 mmol/L [facility] CO2 22 21 - 35 mmol/L [facility] BUN 17 6 - 19 mg/dL [facility] CREATININE 0.70 0.5 - 1.5 mg/dL [facility] GLUCOSE 90 70 - 99 mg/dL [facility] CALCIUM 10.2 8.4 - 10.3 mg/dL [facility] EGFR 88 >59 mL/min/1.7 3m2 [facility] Comment:Estimated glomerular filtration rate calculated using the CKD-EPI refit equation. ANION GAP 18 10 - 20 mmol/L [facility] Blood 03/31/2025 11:3 3 AM EDT 03/31/2025 11:37 AM EDT us Jocelyn Mccall MD LAB BLOOD BKR ORDERABLE S Final Result [facility] [address] [place] [address] * (ABNORMAL) Lipid panel (01/11/2024 10:19 AM EDT) HDL 65 mg/dL [facility] Comment: Interpretation <40 mg/dL: Low HDL cholesterol (major risk factor for CHD) Greater than or equal to 60 mg/dL: High HDL cholesterol ( negative risk factor for CHD) HDL - cholesterol is affected by a number of factors, e.g. smoking, excerise, hormones, sex and age. CHOLESTEROL 244(H) 0 - 240 mg/dL [facility] TRIGLYCERIDES 153 30 - 160 mg/dL [facility] LDL 148(H) 50 - 129 mg/dL [facility] Comment: LDL levels in terms of risk for coronary heart disease: <100 mg/dL: Optimal 100-129 mg/dL: Near or above optimal 130-159 mg/dL: Borderline high 160-189 mg/dL: High >190 mg/dL: Very High CARDIAC RISK RATIO 3.8 3.3 - 4.4 [facility] Blood 01/11/2024 10:1 9 AM EDT 01/11/2024 10:21 AM EDT us Pedro Le JEEP MECHANIC LAB BLOOD BKR ORDERAB LES Final Result [facility] [address] [place], [place] [id number] * BD DXA AXIAL (SPINE) WITH HIP [...] Densitometry http://www.iscd.org 3. National Osteoporosis Foundation http://www.nof.org Pedro Le NP IMThong BD BONE DENSITY D EXA Final Result from Last 3 Months or Most Recently Relevant to Health Maintenance Insurance MEDICARE PART A & B [facility] MEDICARE REPLACEMENT MEDICARE PART A & B [facility] MEDICARE REPLACEMENT MEDICARE PART A & B MEDICARE PART A & B MEDICARE PART A & B MEDICARE REPLACEMENT MEDICARE PART A & B MEDICARE PART A & B MEDICARE REPLACEMENT MEDICARE PART A & B Member Subscriber Plan / Payer (Ef fective 2015-Present) Name:Leanna Anne Member ID:[id number] Relation to Subscriber:Self Name:Leanna Anne Subscriber ID:[id number] Payer ID:[id number] Group ID:Not on file Type:Medicare Address: [employer] [address] [place] [address] [place] [address] MEDICARE REPLACEMENT MEDICARE PART A & B MEDICARE REPLACEMENT Care Teams Registered Dental Assistant Rda Relationship Specialty Start Date End Date Pedro Le NP PCP - General Nurse Practitioner 09/23/22 Additional Source Comments The information contained in this document represents components of the legal health record. It is not the complete legal health record.[facility]
--- OUTSIDE RECORDS SUMMARY | 2025-05-26 13:49 | XMS_ITS | Encounter Summary ---
Author Organization [employer] Address [address] [facility] 7t [place] [address] Care Team Providers Care Secondary Set Up Man Name Role Phone Pedro Le TEASELER Primary Care Provider Encounter Details Date Type Department Care Team (Late st Contact Info) Description 09/23/2022 Abstract [facility] [address] [place] [address] Jaswinder Anderson, JESSIE [address] [place] [address] Social History Tobacco Use Types Packs/Day Years [...] suspected to have Coronavirus/COVID-19? No / Unsure 09/21/2022 11:04 AM EST documented as of this encounter Plan of Treatment Upcoming Encounters Date Type Department Care Team (Late st Contact Info) Description 06/05/2025 12:30 PM EST Office Visit [place] [facility] [address] [place] [address] Pedro Le NP [address] [place] [address] documented as of this encounter Visit Diagnoses Not on filedocumented in this encounter Care Teams Secondary Set Up Man Relationship Specialty Start Date End Date Pedro Le NP [address] [place] [address] PCP - General Internal Medicine 09/21/22 documented as of this encounter
--- OUTSIDE RECORDS SUMMARY | 2025-05-26 13:49 | XMS_ITS | Encounter Summary ---
Author Organization [facility] Address [address] [place] [address] Phone Care Team Providers Care Air Brake Worker Name Role Phone Pedro Le CHASER APPRENTICE Primary Care Provide r Encounter Details Date Type Department Care Team (Late st Contact Info) Description 10/17/2022 Ancillary Orders Non-Invasive Cardiology [address] [place] [address] Gretchen Jerez NP [address] [place] [address] Chest pain, unspecified type; Chest pressure; SOB (shortness of breath); Dizziness; History of hypertension Social History Tobacco Use Types Packs/Day [...] 12/19/2025 11:00 AM EDT Office Visit [facility] [address] [place] [address] James Dejesus, SAMMIE [address] [place] [address] [email or web address] documented as of this encounter Visit Diagnoses Diagnosis Chest pain, unspecified type Chest pressure Other chest pain SOB (shortness of breath) Shortness of breath Dizziness Dizziness and giddiness History of hypertension Personal history of other diseases of circulatory system documented in this encounter Care Teams Air Brake Worker Relationship Specialty Start Date End Date Pedro Le NP PCP - General Nurse Practitioner 09/23/22 documented as of this encounter Additional Source Comments The information contained in this document represents components of the legal health record. It is not the complete legal health record.[facility]
--- OUTSIDE RECORDS SUMMARY | 2025-05-26 13:49 | XMS_ITS | Encounter Summary ---
Author Organization [facility] Address [address] [facility] 7t [place] [address] Care Team Providers Care Hydro Mechanic Name Role Phone Pedro Le [employer]ER Primary Care Provider Reason for Visit * Reason Comments Med Change Request Encounter Details Date Type Department Care Team (Late st Contact Info) Description 10/06/2022 Refill [place] [facility] [address] [place] [address] Pedro Le NP [address] [place] [address] Gastroesophageal reflux disease without esophagitis Social History [...] encounter Miscellaneous Notes * Telephone Encounter - Malathi Baig - 10/06/2022 11:03 AM EDT Duplicated request. Please assign refuse to refill. Thanks documented in this encounter Plan of Treatment Upcoming Encounters Date Type Department Care Team (Late st Contact Info) Description 06/05/2025 12:30 PM EST Office Visit [place] [facility] [address] [facility] [place] [address] Pedro Le NP [address] [place] [address] documented as of this encounter Visit Diagnoses Diagnosis Gastroesophageal reflux disease without esophagitis Esophageal reflux documented in this encounter Care Teams Hydro Mechanic Relationship Specialty Start Date End Date Pedro Le NP [address] [place] [address] PCP - General Internal Medicine 09/21/22 documented as of this encounter
--- OUTSIDE RECORDS SUMMARY | 2025-05-26 13:49 | XMS_ITS | Encounter Summary ---
Author Organization [facility] Address [address] [facility] [address] [place] [address] Care Team Providers Care Client Engagement Specialist Name Role Phone Pedro Le FINANCIAL MARKET DEALER Primary Care Provider Encounter Details Date Type Department Care Team (Late st Contact Info) Description 04/10/2025 Orders Only [facility] [address] [place] [address] Pedro eL NP [address] [place] [address] Social History Tobacco Use Types Packs/Day Years [...] PM EDT documented as of this encounter Plan of Treatment Upcoming Encounters Date Type Department Care Team (Late st Contact Info) Description 06/05/2025 12:30 PM EST Office Visit [facility] [address] [place] [address] Pedro Le NP [address] [place] [address] documented as of this encounter Procedures Procedure Name Priority Date/Time Associated Diagnosis Comments ECG 12-LEAD Routine 03/27/2025 9:48 AM EDT TRANSTHORACIC ECHO (TTE) COMPLETE Routine 03/27/2025 9:43 AM EDT MRI BRAIN WO CONTRAST Routine 03/27/2025 9:41 AM EDT ECG 12-LEAD Routine 03/26/2025 9:[address] HEAD WO CONTRAST Routine 03/26/2025 9 :44 AM EDT CTA HEAD NECK W AND WO CONTRAST Routine 03/26/2025 9:42 AM EDT documented in this encounter Results * ECG 12 lead (03/27/2025 9:48 AM EDT) us Pedro Le NP ECG ORDERABLES Final Result * Transthoracic echo (TTE) complete (03/27/2025 9:43 AM EDT) us Pedro Le NP CV ECHO PROCEDURES Final Res ult * MRI BRAIN WO CONTRAST (03/27/2025 9:41 AM EDT) Anatomical Region Laterality Modality Magnetic Resonan ce us Pedro Le NP IMG MRI PROCEDURES Final Res ult * ECG 12 lead (03/26/2025 9:47 AM EDT) us Pedro Le NP ECG ORDERABLES Final Result * CT HEAD WO CONTRAST (03/26/2025 9:44 AM EDT) Anatomical Region Laterality Modality Computed Tomogra phy us Pedro Le NP IMG CT PROCEDURES Final Resu lt * CTA Head Neck w/ and w/o Contrast (03/26/2025 9:42 AM EDT) Anatomical Region Laterality Modality Head, Neck Computed Tomogra phy us Pedro Le FINANCIAL MARKET DEALER IMG CT PROCEDURES Final Resu lt documented in this encounter Visit Diagnoses Not on filedocumented in this encounter Care Teams Client Engagement Specialist Relationship Specialty Start Date End Date Pedro Le NP [address] [place] [address] PCP - General Internal Medicine 09/21/22 documented as of this encounter
--- OUTSIDE RECORDS SUMMARY | 2025-05-26 13:49 | XMS_ITS | Encounter Summary ---
Author Organization [facility] Address [address] [place] [address] [place] [id number] Phone Care Team Providers Care Puller Out Name Role Phone Pedro Le ELECTRONIC NEWS GATHERING EDITOR Primary Care Provide r Encounter Details Date Type Department Care Team (Late st Contact Info) Description 09/30/2022 Transcribe Orders Virtual Department [address] [place] [address] Gretchen Jerez NP [address] [place] [address] Chest pain, unspecified type (Primary Dx); Chest pressure; SOB (shortness of breath); Dizziness; [...] EDT Office Visit [facility] [address] [place] [address] James Dejesus, SAMMIE [address] [place] [address] documented as of this encounter Visit Diagnoses Diagnosis Chest pain, unspecified type- Primary Chest pressure Other chest pain SOB (shortness of breath) Shortness of breath Dizziness Dizziness and giddiness History of hypertension Personal history of other diseases of circulatory system documented in this encounter Care Teams Puller Out Relationship Specialty Start Date End Date Pedro Le NP PCP - General Nurse Practitioner 09/23/22 documented as of this encounter Additional Source Comments The information contained in this document represents components of the legal health record. It is not the complete legal health record.[facility]
--- OUTSIDE RECORDS SUMMARY | 2025-05-26 13:49 | XMS_ITS | Clinical Summary ---
Author Organization [facility] Address [address] [facility] 7t [place] [address] Care Team Providers Care Diesel Engine Ii Pipe Fitter Name Role Phone Pedro Le NP Primary Care Provider Allergies No known active allergies Medications nitroglycerin (Nitrostat) 0.4 MG SL tablet daily. 021 Active Acetaminophen Extra Strength 500 MG tabletIndications:Migra ine without status migrainosus, not intractable, unspecified migraine type Take 1,000 mg by mouth if needed in the morning and at bedtime (for migraine). 60 tablet 1 024 Active famotidine (Pepcid) 20 MG tabletIndications:Migra ine without status migrainosus, not intractable, unspecified migraine type TAKE 1 TABLET BY MOUTH EVERY MORNING AND THEN 1 TAB AT BEDTIME FOR HEARTBURN, ACID REFLUX, NAUSEA 180 tablet 1 024 Active Additional Information Patient not taking.Reported on 04/16/2025 naproxen (Naprosyn) 500 MG tabletIndications:Migra ine without status migrainosus, not intractable, unspecified migraine type TAKE 1 TABLET BY MOUTH EVERY MORNING AND AT BEDTIME FOR MILD MIGRAINE PAIN NEEDED 60 tablet 1 024 Active Additional Information Patient not taking.Reported on 04/16/2025 valsartan (Diovan) 80 MG tabletIndications:Essen tial hypertension TAKE 1 TABLET (80 MG) BY MOUTH IN THE MORNING 90 tablet 3 024 Active Additional Information Patient not taking.Reported on 04/16/2025 topiramate (Topamax) 25 MG tabletIndications:Migra ine without status migrainosus, not intractable, unspecified migraine type TAKE 1 TABLET (25 MG) BY MOUTH ONCE PER DAY. 90 tablet 1 025 Active Additional Information Patient not taking.Reported on 04/16/2025 amLODIPine (Norvasc) 5 MG tabletIndications:Essen tial hypertension TAKE 1 TABLET (5 MG) BY MOUTH ONCE PER DAY. 90 tablet 1 Active atorvastatin (Lipitor) 40 MG tabletIndications:Pure hypercholesterolemia TAKE 1 TABLET BY MOUTH EVERY DAY IN THE MORNING 90 tablet 1 025 Active Additional Information Patient taking differently: 10 mgOral Every morning, Reported on 04/16/2025 Nirmatrelvir&Ritonavir 300/100 (Paxlovid, 300/100,) 20 x 150 MG & 10 x 100MG tablet therapy packIndications:COVID-1 9 Take 1 Dose by mouth Use as directed. 30 each Active losartan (Cozaar) 100 MG tabletIndications:Essen tial hypertension Take 1 tablet (100 mg) by mouth Once per day. 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 12/08/2022 Gastroesophageal reflux disease without esophagi tis 12/08/2022 Essential hypertension 09/21/2022 Migraine without status migrainosus, not intract able 09/21/2022 Osteoporosis without current pathological fractu re 09/21/2022 Pure hypercholesterolemia 09/21/2022 Seasonal allergic rhinitis 09/21/2022 Encounters Date Type Department Care Team Description 05/09/[address] [address] Pedro Le NP Essential hypertension 04/17/[address] [address] Jen Cody MD Essential hypertension 04/16/2025 3:40 PM EDT Office Visit [address] [address] Jen Cody MD Sore throat (Primary Dx); Essential hypertension; COVID-19 04/10/2025 Orders Only [facility] [address] [place] [address] Pedro Le NP 04/04/2025 Telephone [facility] [address] [place] [address] Pedro Le NP request patient demographic info; neurology follow up; Need records (MRI/MRA) 03/31/2025 10:00 AM EDT Office Visit [facility] [address] [place] [address] Jocelyn Mccall MD Hypokalemia (Primary Dx); Aneurysm (CMS/HCC); Essential hypertension; Dizziness; Migraine without status migrainosus, not intractable, unspecified migraine type; Nonintractable headache, unspecified chronicity pattern, unspecified headache type; Pure hypercholesterolemia 03/25/2025 Telephone [facility] [address] [place] [address] Pedro Le NP request new lab orders from Last 3 Months Immunizations Immunization Administration Dates Next Due Influenza High-dose Quadriva lent Preservative Free 06/04/2020 Influenza, High Dose Seasona l, Preservative Free 05/23/2022,05/05/2021,06/05/2019,06/06 Influenza, IIV3, injectable 08/27/2012 Influenza, seasonal, injecta ble, preservative free 04/22/2013 Influenza, trivalent, adjuvanted 04/06/2024 Pneumococcal Conjugate PCV 13 04/27/2015 Pneumococcal Conjugate PCV 20 10/16/2021 Pneumococcal Polysaccharide PPSV23 12/03/2012 Td (adult), unspecified 04/23/2012 Tdap 05/05/2021 Zoster, live 01/26/2015 Social History Tobacco Use Types Packs/Day Years Used Date Smoking Tobacco: Never Smokeless Tobacco: Never Tobacco Cessation:Counseling Given: Not Answered Alcohol Use Standard Drinks/Week Comments Never 0 [...] not to disclose 2021 5:37 PM EDT Last Filed Vital Signs Vital Sign Reading Time Taken Comments Blood Pressure 148/84 04/16/2025 4:00 PM EDT Pulse 64 04/16/2025 4:00 PM EDT Temperature 36.8 C (98.3 F) 04/16/2025 4:00 PM EDT Respiratory Rate 18 04/16/2025 4:00 PM EDT Oxygen Saturation 98% 03/31/2025 10: 11 AM EDT Inhaled Oxygen Concentration - - Weight 52.1 kg (114 lb 12.8 oz) 04/16/2025 4:00 PM EDT Height 162.6 cm (5' 4 ) 08/15/2024 8:43 AM EST Body Mass Index 19.71 08/15/2024 8:43 AM EST Plan of Treatment Upcoming Encounters Date Type Department Care Team (Late st Contact Info) Description 06/05/2025 12:30 PM EST Office Visit [facility] [address] [place] [address] Pedro Le NP [address] [place] [address] Health Maintenance Due Date Last Done Comments Dental Oral Exam 1945 Dental Prophylaxis 1945 Dental X-Ray: Bitewings 1945 Dental X-Ray: Full Mouth 1945 Alcohol/Substance Use Screening 1957 Hepatitis C Screening 10/22/1963 RSV Patients and Patients Aged 60 years or older (1 - 1-dose 75+ series) 2020 Zoster Vaccines (3 of 3) 05/13/2023 03/18/2023, 07/0 12/2014 COVID-19 Vaccine (4 - season) 2025 04/21/2021, 09/18/2020, 08/28/2020 Influenza Vaccine (#1) 2025 , 05/23/2022, 05/05/2021, Additional history exists Depression Screening 04/15/2025 04/15/2024, 04/15/20 24 SDOH Screening 04/15/2025 04/15/2024 Tobacco Screening 08/15/2025 08/15/2024 Lipid Panel 01/10/2029 01/11/2024, 09/22, 10/06/2022, Additional history exists DTaP/Tdap/Td Vaccines (2 - Td or Tdap) 05/05/2031 05/05/2021, 04/23/2012 Pneumococcal Vaccine: 50+ Years Completed 10/16/2021, 04/27/2015, 12/03/2012 HIB Vaccines Aged Out No longer eligi ble based on patient's age to complete this topic HPV Vaccines Aged Out No longer eligi ble based on patient's age to complete this topic Hepatitis A Vaccines Aged Out No long er eligible based on patient's age to complete this topic Hepatitis B Vaccines Aged Out No long er eligible based on patient's age to complete this topic IPV Vaccines Aged Out No longer eligi ble based on patient's age to complete this topic Meningococcal B Vaccine Aged Out No l onger eligible based on patient's age to complete this topic Meningococcal Vaccine Aged Out No chirag lonnie eligible based on patient's age to complete this topic RSV under 20 months Aged Out No longe r eligible based on patient's age to complete this topic Rotavirus Vaccines Aged Out No longer eligible based on patient's age to complete this topic Procedures Procedure Name Priority Date/Time Associated Diagnosis Comments AMB REFERRAL TO NEUROLOGY Routine 05/26/2025 Migraine without status migrainosus, not intractable, unspecified migraine type POCT RAPID COVID ANTIGEN Routine 04/16/2025 4:20 PM EDT Sore throat AMB REFERRAL TO NEUROSURGERY Routine 04/08/2025 Aneurysm (CMS/HCC) BASIC METABOLIC PANEL Routine 03/31/2025 Hypokalemia ECG 12-LEAD Routine 03/27/2025 9:48 AM EDT TRANSTHORACIC ECHO (TTE) COMPLETE Routine 03/27/2025 9:43 AM EDT MRI BRAIN WO CONTRAST Routine 03/27/2025 9:41 AM EDT ECG 12-LEAD Routine 03/26/2025 9:[address] HEAD WO CONTRAST Routine 03/26/2025 9 :44 AM EDT CTA HEAD NECK W AND WO CONTRAST Routine 03/26/2025 9:42 AM EDT LIPID PANEL, STANDARD Routine 01/11/2024 Pure hypercholesterolemia from Last 3 Months or Most Recently Relevant to Health Maintenance Results * Referral to Neurology (05/26/2025) Pedro Le NP OUTPATIENT REFERRAL ORDERABL ES Final Result * POCT Rapid COVID Ag (04/16/2025 4:20 PM EDT) Rapid COVID Ag Positive Swab 04/16/2025 4:20 PM EDT Jen Cody MD POINT OF CARE TEST ENTER/EDIT ORDERABLES Final Result * Referral to Neurosurgery (04/08/2025) us Jocelyn Mccall MD OUTPATIENT REFERRAL ORDERABLES F inal Result * Basic Metabolic Panel [id number] (03/31/2025) Blood Venous blood specimen / Unknown us Jocelyn Mccall MD LAB BLOOD ORDERABLES Final Resul t Performing Organization Address [facility] Co de Phone Number [id number] [address] [place] [address], [place] [phone] * ECG 12 lead (03/27/2025 9:48 AM EDT) Only the most recent of2 resultswithin the time period is included. Pedro Le NP ECG ORDERABLES Final Result * Transthoracic echo (TTE) complete (03/27/2025 9:43 AM EDT) Pedro Le NP CV ECHO PROCEDURES Final Res ult * MRI BRAIN WO CONTRAST (03/27/2025 9:41 AM EDT) Anatomical Region Laterality Modality Magnetic Resonan ce Pedro Le NP IMG MRI PROCEDURES Final Res ult * CT HEAD WO CONTRAST (03/26/2025 9:44 AM EDT) Anatomical Region Laterality Modality Computed Tomogra phy Pedro Le NP IMG CT PROCEDURES Final Resu lt * CTA Head Neck w/ and w/o Contrast (03/26/2025 9:42 AM EDT) Anatomical Region Laterality Modality Head, Neck Computed Tomogra phy Pedro Le NP IMG CT PROCEDURES Final Resu lt * Lipid Panel, Standard (01/11/2024) Blood Venous blood specimen / Unknown Pedro Le NP LAB BLOOD ORDERABLES Final R esult Performing Organization Address City/[facility] Co de Phone Number [facility] [address] [place] [address], [place] [phone] from Last 3 Months or Most Recently Relevant to Health Maintenance Insurance [facility] STANDARD [facility] DUAL COMPLETE Care Teams Diesel Engine Ii Pipe Fitter Relationship Specialty Start Date End Date Pedro Le NP [address] [place] [address] PCP - General Internal Medicine 09/21/22
--- OUTSIDE RECORDS SUMMARY | 2025-05-26 13:49 | XMS_ITS | Encounter Summary ---
Author Organization [facility] Address [address] [facility] [address] [place] [phone] Phone Care Team Providers Care Physician Scribe Name Role Phone Amber Mota Primary Care Provider ePdro Le NP Primary Care Provide r Encounter Details Date Type Department Care Team (Late st Contact Info) Description 06/25/2018 Ancillary Orders Virtual Department [address] [place] [address] Amber Mota PA [address] [place] [id number] Other dysphagia Social History Tobacco Use Types Packs/Day Years [...] 12/19/2025 11:00 AM EDT Office Visit [facility] [address] [address] James Dejesus, SAMMIE [address] [place] [address] documented as of this encounter Visit Diagnoses Diagnosis Other dysphagia documented in this encounter Care Teams Physician Scribe Relationship Specialty Start Date End Date Amber Mota PA [address] [address] PCP - General Unknown Provider Specialty 06/25/1809/22/22 Pedro Le NP [address] [address] PCP - General Nurse Practitioner 09/23/22 documented as of this encounter Additional Source Comments The information contained in this document represents components of the legal health record. It is not the complete legal health record.[facility]
--- OUTSIDE RECORDS SUMMARY | 2025-05-26 13:49 | XMS_ITS | Encounter Summary ---
Author Organization [facility] Address [address] [facility] [address] [place] [address] Phone Care Team Providers Care Cloth Finisher Name Role Phone Amber Mota Primary Care Provider Pedro Le NP Primary Care Provide r Encounter Details Date Type Department Care Team (Late st Contact Info) Description 07/03/2018 Ancillary Orders Virtual Department [address] [place] [address] Amber Mota PA [address] [place] [id number] Other dysphagia Social History Tobacco Use Types [...] 12/19/2025 11:00 AM EDT Office Visit [facility] [address] [address] James Dejesus, SAMMIE [address] [place] [address] documented as of this encounter Results * FL UGI SERIES DOUBLE CONTRAST WITHOUT ABDOMEN FILM (07/03/2018 9:17 AM EST) Anatomical Region Laterality Modality Abdomen Radiographic Mell ging 07/03/2018 9:29 AM EST Impressions 07/03/2018 9:36 AM EST Essentially normal barium swallow/upper GI. No source of cervical or abdominal pain is apparent. FLUOROSCOPY TIME: 2:30 MIN 85 IMAGES/FRAMES POS - [id number] Narrative 07/03/2018 9:36 AM EST Barium swallow/upper GI. A biphasic exam including cine radiography of the oropharynx in 2 projections was performed with the aid of an perpetual inventory clerk. No comparison HISTORY: The patient describes the onset of right upper neck pain and abdominal pain continuous since it began abruptly 3 weeks ago, exacerbated by eating. FINDINGS: The procurement director film of the neck shows no obvious soft tissue masses, opaque foreign bodies or significant cervical osteophytes. Barium swallow reveals normal oral pharyngeal motility. No aspiration, significant penetration, cricopharyngeal achalasia or nasopharyngeal reflux. Esophageal motility is minimally weak with very slight loss of strength of the primary stripping wave but no significant tertiary contractions nor spasm. No esophageal stricturing, erosive changes or masses are apparent. The stomach fills and coats well. The antrum, bulb and C-loop are all freely distensible. No obvious scarring, ulceration or masses. No hiatal hernia. Reflux could not be elicited with provocative maneuvers. Procedure Note Leland Lorenz MD - 07/03/2018 Barium swallow/upper GI. A biphasic exam including cine radiography of theoropharynx in 2 projections was performed with the aid of aninterpreter. No comparison HISTORY: The patient describes the onset of right upper neck pain andabdominal pain continuous since it began abruptly 3 weeks ago, exacerbatedby eating. FINDINGS: The procurement director film of the neck shows no obvious soft tissue masses, opaqueforeign bodies or significant cervical osteophytes. Barium swallow reveals normal oral pharyngeal motility. No aspiration,significant penetration, cricopharyngeal achalasia or nasopharyngealreflux. Esophageal motility is minimally weak with very slight loss of strength ofthe primary stripping wave but no significant tertiary contractions norspasm. No esophageal stricturing, erosive changes or masses are apparent. The stomach fills and coats well. The antrum, bulb and C-loop are allfreely distensible. No obvious scarring, ulceration or masses. No hiatal hernia. Reflux could not be elicited with provocativemaneuvers. IMPRESSION: Essentially normal barium swallow/upper GI. No source of cervical orabdominal pain is apparent. FLUOROSCOPY TIME: 2:30 MIN 85 IMAGES/FRAMES POS - [id number] Amber CHAPA [facility] MISC Final Resul t documented in this encounter Visit Diagnoses Diagnosis Other dysphagia Other dysphagia documented in this encounter Care Teams Cloth Finisher Relationship Specialty Start Date End Date Amber Mota PA [address] [address] PCP - General Unknown Provider Specialty 06/25/1809/22/22 Pedro Le NP [address] [address] PCP - General Nurse Practitioner 09/23/22 documented as of this encounter Additional Source Comments The information contained in this document represents components of the legal health record. It is not the complete legal health record.[facility]
== END 2025-05-26 11:42 | disposition home or self-care (01) ==
LOC: HO.HSM 11:00
PROVIDERS: PCP Nurse Practitioner Community Health; Visit Provider Nurse Practitioner
DX: G44.229 Chronic tension-type headache, not intractable (principal); G43.009 Migraine without aura, not intractable, without status migrainosus
CPT/HCPCS: 99204

== ENCOUNTER → 2025-05-26 11:00 | Outpatient (BNVA) | payer OTHER, SELFPAY | PROVIDERS: PCP Nurse Practitioner Community Health; Visit Provider Nurse Practitioner | DX: G44.229 Chronic tension-type headache, not intractable (principal); G43.009 Migraine without aura, not intractable, without status migrainosus; Z09 Encounter for follow-up examination after completed treatment for conditions other than malignant neoplasm; I10 Essential (primary) hypertension; E78.5 Hyperlipidemia, unspecified | CPT/HCPCS: 99202 ==